=== PATIENT | male | born 1990 | race Caucasian/White ===

== ENCOUNTER 2016-08-20 03:45 | Emergency (ER) | payer SELFPAY ==
[~2016-08-20] VITALS: Ht 175.3 cm; Wt 93.0 kg
[2016-08-20 04:00] VITALS: BP 127/67
[2016-08-20] MEDS ORDERED: PROM118S3 PO (04:20)
[2016-08-20] MEDS ORDERED: PRED20TA PO (04:20)
--- NOTE | 2016-08-20 04:25 | PHYS DOC ---
General Chief Complaint: SORE THROAT Stated Complaint: SORE THROAT Time Seen by MD: 03:47 Source: patient Exam Limitations: no limitations Problems: History of Present Illness Initial Comments Pt is 26/M to ED c/o sore throat. Pt spouse +strep here this week. Pt with few days sore throat subjective fevers /myalgias. Drinking well not eating due to pain. OTC not helping, no difficulty breathing/swallowing/neck stiffness or pain. Timing/Duration: gradual, other Severity: severe Location: throat Prearrival Treatment: over the counter meds Modifying Factors: worse with coughing Associated Symptoms: fever, malaise, nasal congestion/drainage, poor solids intake, sore throat Allergies: Coded Allergies: No Known Drug Allergies (Unverified , 08/20/16) Past Medical History Medical History: no pertinent history Surgical History: noncontributory Social History Smoker: cigarettes Alcohol: none Drugs: none Constitutional: see HPI Ears: denies dizziness, denies pain, denies tinnitus Nose: denies clots, congestion Mouth: denies loose teeth, denies pain, denies swelling Throat: see HPI, denies neck stiffness Respiratory: denies cough, denies shortness of breath Cardiovascular: denies chest pain, denies palpitations Gastrointestinal: denies nausea, denies vomiting Musculoskeletal: see HPI Physical Exam General Appearance: WD/WN, mild distress Eyes: bilateral eye normal inspection, bilateral eye PERRL, bilateral eye EOMI Ears: bilateral ear auricle normal, bilateral ear canal normal, bilateral ear TM normal Nose: normal inspection Mouth/Throat: other (pharynx beefy red with exudate airway patent) Neck: supple, trachea midline, lymphadenopathy (R), lymphadenopathy (L) Cardiovascular/Respiratory: normal peripheral pulses, normal breath sounds 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 Stop smoking, seek medical assistance if necessary. OTC tylenol and analgesic throat sprays as needed. Aggressive hydration with gatorade, water. The penicillin shot you received in the ED should resolve your infection completely. Rx: prometh/cod syrup, prednisone Follow up with your doctor in 10 days for recheck. Return to ED with new or changing symptoms. QUINTEN WILKINSON DO August 20, 2016 04:25
[2016-08-20] MEDS ORDERED: MORPHINE SULFATE 10 MG/ML SYRINGE. IM ONE (05:00)
[2016-08-20] MEDS ORDERED: PREDNISONE 20 MG TABLET PO ONE (05:00)
[2016-08-20] MEDS ORDERED: LIDO:MAALOX 1:1 20 ML SINGLE DOSE PO ONE (05:00)
[2016-08-20] MEDS ORDERED: PENICILLIN G BENZATHINE LA 1,200,000 UNIT/2 ML DISP.SYRIN. IM ONE (05:00)
== END 2016-08-20 04:55 | disposition home or self-care (01) ==
LOC: ER 03:50
DX: J02.0 Streptococcal pharyngitis (principal); F17.200 Nicotine dependence, unspecified, uncomplicated
CPT/HCPCS: 87880; 96372; 99284; J0561; J2270; J7512